=== PATIENT | female | born 1995 | race Caucasian/White ===

== ENCOUNTER 2016-10-23 23:58 | Emergency (ER) | payer OTHER ==
[2016-10-24 01:32] VITALS: BP 112/72
== END 2016-10-24 01:32 | disposition home or self-care (01) ==
LOC: ED 23:58
DX: J06.9 Acute upper respiratory infection, unspecified (principal)
CPT/HCPCS: Q0162

== ENCOUNTER 2017-01-23 18:40 | Emergency (ER) | payer MEDICAID ==
[2017-01-23 21:01] VITALS: BP 128/74
== END 2017-01-23 21:01 | disposition home or self-care (01) ==
LOC: ED 18:40
DX: S46.811A Strain of other muscles, fascia and tendons at shoulder and upper arm level, right arm, initial encounter (principal); Z79.3 Long term (current) use of hormonal contraceptives; X58.XXXA Exposure to other specified factors, initial encounter; Y93.89 Activity, other specified; Y92.89 Other specified places as the place of occurrence of the external cause; Y99.8 Other external cause status
CPT/HCPCS: J1885; J7512

== ENCOUNTER 2017-01-27 10:23 | Emergency (ER) | payer MEDICAID ==
[2017-01-27 13:14] VITALS: BP 123/77
== END 2017-01-27 13:14 | disposition home or self-care (01) ==
LOC: ED 10:23
DX: L50.9 Urticaria, unspecified (principal)